=== PATIENT | female | born 1950 | race Caucasian/White ===

== ENCOUNTER 2016-10-13 12:55 | Emergency (ER) | payer BC, MEDICARE, OTHER ==
--- NOTE | 2016-10-13 13:37 | ED PDOC ---
HPI: Neurologic - General Time Seen by Provider: 10/13/16 13:11 Chief Complaint (Nursing): Weakness/Neurological Deficit Chief Complaint (Provider): Weakness/Neurological Deficit Source: patient Exam Limitations: no limitations - History of Present Illness Timing/Duration: 1 week Allergies/Adverse Reactions: Allergies aspirin Allergy (Verified 10/13/16 12:59) RASH Sulfa (Sulfonamide Antibiotics) Allergy (Verified 10/13/16 12:59) RASH Additional Complaint(s): Marlin Valle is a 66 year old female with a past medical history of asthma, hypertension, hypercholesterolemia, and osteoporosis presenting to the ED for an evaluation of a 1 week history of left arm and left sided facial numbness. The patient also states associated numbness to her tongue, chronic headache worsening in the last few days prior to arrival, and decreased urine output. She denies fever or back pain. PMD: Junaid Mcclure MD Past Medical History Vital Signs: Last Vital Signs Temp 98.8 F 10/13/16 12:59 Pulse 84 10/13/16 12:59 Resp 16 10/13/16 12:59 BP 145/75 10/13/16 12:59 Pulse Ox 100 10/13/16 12:59 - Medical History PMH: Asthma, HTN, Hypercholesterolemia, Migraine, Osteoporosis - Family History Family History: States: Unknown Family Hx - Social History Current smoker - smoking cessation education provided: No Ex-Smoker (has not smoked in the last 12 months): No Alcohol: None Drugs: Denies - Allergies Allergies/Adverse Reactions: Allergies Allergy/AdvReac Type Severity Reaction Status Date / Time aspirin Allergy RASH Verified 10/13/16 12:59 Sulfa (Sulfonamide Allergy RASH Verified 10/13/16 12:59 Antibiotics) Review of Systems ROS Statement: Except As Marked, All Systems Reviewed And Found Negative Constitutional: Negative for: Fever Genitourinary Female: Positive for: Dysuria (decreased urine output ) Musculoskeletal: Negative for: Back Pain Neurological: Positive for: Numbness (left sided facial numbness, left arm numbness, tongue numbness ), Headache Physical Exam - Reviewed Nursing Documentation Reviewed: Yes Vital Signs Reviewed: Yes - Physical Exam Appears: Positive for: Well, Non-toxic, No Acute Distress Head Exam: Positive for: ATRAUMATIC, NORMAL INSPECTION, NORMOCEPHALIC Neck: Positive for: Normal, Painless ROM, Supple Cardiovascular/Chest: Positive for: Regular Rate, Rhythm, Chest Non Tender Respiratory: Positive for: Normal Breath Sounds. Negative for: Respiratory Distress Gastrointestinal/Abdominal: Positive for: Normal Exam, Bowel Sounds, Soft. Negative for: Tenderness Extremity: Positive for: Normal ROM Neurologic/Psych: Positive for: Alert, Oriented, Other (no weakness in face; symmetrical; able to raise eyebrows and close eyes ). Negative for: Motor/ Sensory Deficits, Facial Droop - Laboratory Results Result Diagrams: 10/13/16 13:00 10/13/16 13:00 - ECG O2 Sat by Pulse Oximetry: 100 (RA) Pulse Ox Interpretation: Normal Medical Decision Making Medical Decision Makin:11 Impression: Left sided facial numbness Plan: * CT head w/o contrast * Basic metabolic panel * ED urine dipstick * CBC (With differential) * Urine culture * Urinalysis * Tylenol 650 mg PO * IV Insertion * Reevaluation Head CT FINDINGS: HEMORRHAGE: No intracranial hemorrhage. BRAIN: No mass effect or edema. No atrophy or chronic microvascular ischemic changes. VENTRICLES: Unremarkable. No hydrocephalus. CALVARIUM: Unremarkable. PARANASAL SINUSES: Unremarkable as visualized. No significant inflammatory changes. MASTOID AIR CELLS: Unremarkable as visualized. No inflammatory changes. OTHER FINDINGS: None. IMPRESSION: No acute intracranial abnormalities. No significant findings to account for the clinical presentation. Scribe Attestation: Documented by Lawanda Garcia, acting as a scribe for Zora Berger MD. Provider Scribe Attestation: All medical record entries made by the Scribe were at my direction and personally dictated by me. I have reviewed the chart and agree that the record accurately reflects my personal performance of the history, physical exam, medical decision making, and the department course for this patient. I have also personally directed, reviewed, and agree with the discharge instructions and disposition. 3.55p - Dr. Mcclure finally called back to review findings of patient that he saw earlier and that was sent to the ER for evaluation. History and findings are congruent. CT/labs normal. Symptoms non progressive for one week. Will discharge. Disposition - Clinical Impression Clinical Impression: Paresthesia - Patient ED Disposition Is Patient to be Admitted: No Doctor Will See Patient In The: Office Counseled Patient/Family Regarding: Diagnosis, Need For Followup - Disposition Referrals: Junaid Mcclure MD [Staff Provider] - Disposition: Routine/Home Disposition Time: 15:57 Condition: STABLE Instructions: Paresthesia (ED) Forms: [facility] ([place]) - POA Present On Arrival: None
[2016-10-13 14:04] LABS: BLOOD UREA NITROGEN 13 mg/dl (7-17); CALCIUM 9.6 mg/dL (8.4-10.2); GFR AFRICAN-AMERICAN > 60; GFR NON-AFRICAN AMERICAN > 60
[2016-10-13 14:14] LABS: BASO % 0.5 % (0.0-2.0); EOS # 0.1 K/uL (0.0-0.7); HEMOGLOBIN 15.2 g/dL (12.0-16.0); LYMPH # 2.8 K/uL (1.0-4.3); LYMPH % 32.8 % (20.0-40.0); MEAN CELL VOLUME 94.2 fl (81.0-99.0); MEAN CORPUSCULAR HEMOGLOBIN 31.8 pg (27.0-31.0); MEAN CORPUSCULAR HGB CONC 33.8 g/dL (33.0-37.0); MEAN PLATELET VOLUME 8.8 fl (7.2-11.7); MONO # 0.6 K/uL (0.0-0.8); MONO % 6.6 % (0.0-10.0); NEUT # 5.1 K/uL (1.8-7.0); NEUT % 59.1 % (50.0-75.0); NRBC % 0.1 % (0.0-0.0); RBC 4.78 Mil/uL (3.80-5.20); RED CELL DISTRIBUTION WIDTH 12.9 % (11.5-14.5); WHITE BLOOD COUNT 8.7 K/uL (4.8-10.8)
--- NOTE | 2016-10-13 14:18 | CT ---
PROCEDURE: CT HEAD WITHOUT CONTRAST. HISTORY: numbness Left nasolabial area for 1 week, ESCALERA COMPARISON: None available. TECHNIQUE: Axial computed tomography images were obtained through the head/brain without intravenous contrast. Coronal and sagittal reconstructed images. Radiation dose: Total exam DLP = 778.17 mGy-cm. This CT exam was performed using one or more of the following dose reduction techniques: Automated exposure control, adjustment of the mA and/or kV according to patient size, and/or use of iterative reconstruction technique. FINDINGS: HEMORRHAGE: No intracranial hemorrhage. BRAIN: No mass effect or edema. No atrophy or chronic microvascular ischemic changes. VENTRICLES: Unremarkable. No hydrocephalus. CALVARIUM: Unremarkable. PARANASAL SINUSES: Unremarkable as visualized. No significant inflammatory changes. MASTOID AIR CELLS: Unremarkable as visualized. No inflammatory changes. OTHER FINDINGS: None. IMPRESSION: No acute intracranial abnormalities. No significant findings to account for the clinical presentation.
[2016-10-13 15:25] LABS: SQUAMOUS EPITHIAL 1 /hpf (0-5); URINE BACTERIA RARE (<OCC); URINE BILIRUBIN NEGATIVE (NEGATIVE); URINE BLOOD MODERATE (NEGATIVE); URINE CLARITY SLIGHTY-CLOUDY (Clear); URINE COLOR YELLOW (YELLOW); URINE GLUCOSE (UA) NEG (Normal); URINE LEUKOCYTE ESTERASE NEG Leu/uL (Negative); URINE NITRATE NEGATIVE (NEGATIVE); URINE PROTEIN 30 mg/dL (NEGATIVE); URINE UROBILINOGEN 0.2-1.0 mg/dL (0.2-1.0)
[2016-10-13 16:43] VITALS: BP 132/74; PULSE 67; RESP 19; TEMP 98.6; O2SAT 98
--- NOTE | 2016-10-14 08:02 | CARD ---
APPROVED REPORT EKG Measurement Heart [id number] <Conclusion> Sinus bradycardia Possible Left atrial enlargement Incomplete right bundle branch block Borderline ECG
== END 2016-10-13 17:09 | disposition home or self-care (01) ==
LOC: H.ER 12:55
DX: R20.2 Paresthesia of skin (principal); I10 Essential (primary) hypertension; J45.909 Unspecified asthma, uncomplicated

== ENCOUNTER 2017-11-16 10:37 | Observation (INO) | payer MEDICARE, OTHER ==
[2017-11-16 10:49] VITALS: BMI 20.7
--- NOTE | 2017-11-16 11:19 | ED PDOC ---
HPI: Abdomen Time Seen by Provider: 11/16/17 11:13 Chief Complaint (Nursing): GI Problem History Per: Sign Wirer (darwin luis [id number]) History/Exam Limitations: no limitations Onset/Duration Of Symptoms: Days (1) Current Symptoms Are (Timing): Still Present Severity: Moderate Location Of Pain/Discomfort: LLQ Quality Of Discomfort: Sharp Associated Symptoms: Nausea, Diarrhea. denies: Vomiting, Urinary Symptoms Alleviating Factors: None Last Bowel Movement: Today Additional Complaint(s): 67yo female states began w diarrhea yesterday morning, progressing to LLQ abd pain and now one episode bloody stools this morning at 5am. Symptoms associated with chills and nausea, denies vomiting, syncope or back pain/ urinary symptoms. Denies prior hx rectal bleeding. Sees Dr Dowell for annual colonoscopies for "thickened colon wall". Past Medical History Reviewed: Historical Data, Nursing Documentation, Vital Signs Vital Signs: Last Vital Signs Temp 97 F L 11/16/17 10:47 Pulse 72 11/16/17 10:47 Resp 20 11/16/17 10:47 BP 145/76 11/16/17 10:47 Pulse Ox 97 11/16/17 11:24 - Medical History PMH: Asthma, HTN, Hypercholesterolemia, Migraine, Osteoporosis - Surgical History Other surgeries: breast cyst - Family History Family History: States: Unknown Family Hx - Living Arrangements Living Arrangements: With Family - Social History Current smoker - smoking cessation education provided: No - Allergies Allergies/Adverse Reactions: Allergies Allergy/AdvReac Type Severity Reaction Status Date / Time Sulfa (Sulfonamide Allergy RASH Verified 10/13/16 12:59 Antibiotics) Review of Systems Constitutional: Positive for: Chills. Negative for: Weight loss Eyes: Negative for: Eyelid Inflammation ENT: Negative for: Nose Discharge, Throat Pain Cardiovascular: Negative for: Chest Pain, Palpitations Respiratory: Negative for: Shortness of Breath Gastrointestinal: Positive for: Nausea, Abdominal Pain, Diarrhea, Hematochezia. Negative for: Vomiting, Hematemesis, Rectal Pain Genitourinary Female: Negative for: Dysuria, Hematuria Musculoskeletal: Negative for: Neck Pain Skin: Negative for: Rash, Lesions Neurological: Negative for: Weakness, Numbness, Headache, Dizziness Physical Exam - Reviewed Nursing Documentation Reviewed: Yes Vital Signs Reviewed: Yes - Physical Exam Appears: Positive for: Non-toxic, Uncomfortable Head Exam: Positive for: ATRAUMATIC, NORMAL INSPECTION, NORMOCEPHALIC Skin: Positive for: Normal Color, Warm, DRY Eye Exam: Positive for: EOMI, Normal appearance, PERRL ENT: Positive for: Normal ENT Inspection Neck: Positive for: Normal, Painless ROM Cardiovascular/Chest: Positive for: Regular Rate, Rhythm Respiratory: Positive for: CNT, Normal Breath Sounds Gastrointestinal/Abdominal: Positive for: Soft, Tenderness (LLQ). Negative for : Distended, Rebound, Asicites Back: Positive for: Normal Inspection Extremity: Positive for: Normal ROM Neurologic/Psych: Positive for: Alert, Oriented. Negative for: Motor/Sensory Deficits - Laboratory Results Result Diagrams: 11/16/17 11:40 11/16/17 11:40 - ECG O2 Sat by Pulse Oximetry: 97 Medical Decision Making Medical Decision Making: workup for abd pain w rectal bleeding initiated r/o diverticulitis, colitis vs other labs reviewed hgb normal WBC normal Manufacturing Automation Engineer normal Accession No. : [id number] Patient Name / ID : SADE MARTINEZ / [id number] Exam Date : 11/16/2017 14:43:18 ( Approved ) Study Comment : Sex / Age : F / 67Y Creator : Gisela Koroma MD Dictator : Gisela Koroma MD Lead Teller : Federal Air Marshal : Gisela Koroma MD Approver2 : Report Date : 11/16/2017 15:13:09 My Comment : Date of service: 11/16/2017 PROCEDURE: CT Abdomen and Pelvis with contrast HISTORY: LLQ pain, rectal bleeding COMPARISON: None. TECHNIQUE: CT scan of the abdomen and pelvis was performed after administration of intravenous contrast. Oral contrast was not administered. Coronal and sagittal reformatted images were obtained. Contrast dose: 95 cc Omnipaque 300 Radiation dose: Total exam DLP = 367.19 mGy-cm. This CT exam was performed using one or more of the following dose reduction techniques: Automated exposure control, adjustment of the mA and/or kV according to patient size, and/or use of iterative reconstruction technique. FINDINGS: LOWER THORAX: The visualized lungs are clear. LIVER: Normal in size with diffuse fatty appearance. No gross lesion or ductal dilatation. GALLBLADDER AND BILE DUCTS: No calcified gallstones. PANCREAS: Normal in size with homogeneous enhancement. No gross lesion or ductal dilatation. SPLEEN: Normal in size and appearance. ADRENALS: Mild thickening without discrete nodule. KIDNEYS AND URETERS: Normal in size with homogeneous enhancement. There are simple cysts in the right kidney, the largest in the upper pole measures 5.9 x 4.8 cm. No hydronephrosis. No solid mass. VASCULATURE: No aortic aneurysm. BOWEL: The small bowel loops are normal in caliber. There is apparent moderate circumferential mural thickening in the colon. No bowel dilatation or obstruction. APPENDIX: Normal appendix. PERITONEUM: No free fluid. No free air. LYMPH NODES: No enlarged lymph nodes. BLADDER: Unremarkable. REPRODUCTIVE: Unremarkable. BONES: No acute fracture. OTHER FINDINGS: None. IMPRESSION: Findings are most compatible with acute nonspecific infectious/inflammatory pancolitis. No evidence for bowel dilatation or obstruction. Fatty liver. 5.9 x 4.8 cm simple cyst in the right kidney. Disposition - Disposition Forms: [employer] (I[place]ic)
[2017-11-16] MEDS ORDERED: Sodium Chloride 0.9% 1,000 ML IV STA (11:20)
[2017-11-16 12:13] LABS: PROTHROMBIN TIME 10.9 Seconds (9.8-13.1)
[2017-11-16 12:16] LABS: PARTIAL THROMBOPLASTIN TIME 29.7 Seconds (25.6-37.1)
[2017-11-16 12:17] LABS: BASO % 0.2 % (0.0-2.0); EOS % 0.3 % (0.0-4.0); HEMOGLOBIN 14.6 g/dL (12.0-16.0); LYMPH # 1.3 K/uL (1.0-4.3); LYMPH % 12.9 % (20.0-40.0); MEAN CELL VOLUME 92.8 fl (81.0-99.0); MEAN CORPUSCULAR HEMOGLOBIN 32.1 pg (27.0-31.0); MEAN CORPUSCULAR HGB CONC 34.6 g/dL (33.0-37.0); MEAN PLATELET VOLUME 8.4 fl (7.2-11.7); MONO # 0.4 K/uL (0.0-0.8); NEUT # 8.5 K/uL (1.8-7.0); NEUT % 82.6 % (50.0-75.0); NRBC % 0.1 % (0.0-0.0); RBC 4.54 Mil/uL (3.80-5.20); RED CELL DISTRIBUTION WIDTH 13.3 % (11.5-14.5); WHITE BLOOD COUNT 10.3 K/uL (4.8-10.8)
[2017-11-16 12:23] LABS: ALB/GLOB RATIO 1.3 (1.0-2.1); ALBUMIN 4.2 g/dL (3.5-5.0); ALT/SGPT 34 U/L (9-52); AST/SGOT 34 U/L (14-36); BLOOD UREA NITROGEN 13 mg/dl (7-17); CALCIUM 9.2 mg/dL (8.4-10.2); GFR NON-AFRICAN AMERICAN > 60; LIPASE 178 U/L (23-300)
[2017-11-16 13:36] LABS: SQUAMOUS EPITHIAL 1 /hpf (0-5); URINE BILIRUBIN NEGATIVE (NEGATIVE); URINE BLOOD SMALL (NEGATIVE); URINE CLARITY SLIGHTY-CLOUDY (Clear); URINE COLOR AMBER (YELLOW); URINE GLUCOSE (UA) NEG (Normal); URINE LEUKOCYTE ESTERASE NEG Leu/uL (Negative); URINE PROTEIN 100 mg/dL (NEGATIVE); URINE UROBILINOGEN 0.2-1.0 mg/dL (0.2-1.0)
[2017-11-16] MEDS ORDERED: Sodium Chloride 0.9% 50 ML IV ONE (14:18)
[2017-11-16] MEDS ORDERED: Iohexol 300 100 ML IJ ONE (14:18)
--- NOTE | 2017-11-16 15:14 | CT ---
Date of service: 11/16/2017 PROCEDURE: CT Abdomen and Pelvis with contrast HISTORY: LLQ pain, rectal bleeding COMPARISON: None. TECHNIQUE: CT scan of the abdomen and pelvis was performed after administration of intravenous contrast. Oral contrast was not administered. Coronal and sagittal reformatted images were obtained. Contrast dose: 95 cc Omnipaque 300 Radiation dose: Total exam DLP = 367.19 mGy-cm. This CT exam was performed using one or more of the following dose reduction techniques: Automated exposure control, adjustment of the mA and/or kV according to patient size, and/or use of iterative reconstruction technique. FINDINGS: LOWER THORAX: The visualized lungs are clear. LIVER: Normal in size with diffuse fatty appearance. No gross lesion or ductal dilatation. GALLBLADDER AND BILE DUCTS: No calcified gallstones. PANCREAS: Normal in size with homogeneous enhancement. No gross lesion or ductal dilatation. SPLEEN: Normal in size and appearance. ADRENALS: Mild thickening without discrete nodule. KIDNEYS AND URETERS: Normal in size with homogeneous enhancement. There are simple cysts in the right kidney, the largest in the upper pole measures 5.9 x 4.8 cm. No hydronephrosis. No solid mass. VASCULATURE: No aortic aneurysm. BOWEL: The small bowel loops are normal in caliber. There is apparent moderate circumferential mural thickening in the colon. No bowel dilatation or obstruction. APPENDIX: Normal appendix. PERITONEUM: No free fluid. No free air. LYMPH NODES: No enlarged lymph nodes. BLADDER: Unremarkable. REPRODUCTIVE: Unremarkable. BONES: No acute fracture. OTHER FINDINGS: None. IMPRESSION: Findings are most compatible with acute nonspecific infectious/inflammatory pancolitis. No evidence for bowel dilatation or obstruction. Fatty liver. 5.9 x 4.8 cm simple cyst in the right kidney.
[2017-11-16] MEDS ORDERED: metroNIDAZOLE 500mg/100ml NS 100 ML IV STA (16:59)
[2017-11-16] MEDS ORDERED: Ciprofloxacin 400mg/200ml D5W 400 MG/200 ML BAG IVPB STA (16:59)
[2017-11-16] MEDS ORDERED: metroNIDAZOLE 500mg/100ml NS 100 ML IVPB ONE (17:45)
[2017-11-16] MEDS ORDERED: Ciprofloxacin 400mg/200ml D5W 400 MG/200 ML BAG IVPB ONE (17:45)
--- NOTE | 2017-11-16 17:58 | CP.PCM.HP ---
History of Present Illness - History of Present Illness History of Present Illness: 67 y/o female with PMH HTN, Dyslipidemia , osteoporosis presented to Er with 2 day history of diffuse cramps abdominal pain . As per patient she started having some abdominal pain since yesterday associated with 1 episode of diarrhea. Early this morning her abdominal pain progressed to 10/10 , and developed multiple bouts of watery diarrhea and fresh rectal bleed . She also complaining of nausea, no vomiting and feeling chills.Last colonoscopy was almost 1 year ago.Denies any recent travel and no one from her family is experiencing these symptoms. As per daughter 1 week ago for the first time she got Prolia injection for her osteoporosis. Denies any fever, chest pain , SOB, palpitation, PND , orthopnea, weight loss. Allergies :Sulfa drugs PMH : Dyslipidemia, HTN, osteoporosis Medications; omeprazole, zolpidem,losartan,ASA ,lamotrigine Prolia Surgery ; Tubal ligation, right breast cyst removal, uterine fibroma vs cyst removal family history ; siblings have all HTN and DM , aunt and grandparents had heart condition Social history ; Lives in [place] with and daughter , retired , denies smoking , ETOH or drug abuse Code status; Full PMD ; Dr Bang Loja Surrogate decision maker daughter Present on Admission - Present on Admission Any Indicators Present on Admission: No Review of Systems - Review of Systems All systems: reviewed and no additional remarkable complaints except Past Patient History - Infectious Disease Hx of Infectious Diseases: None - Tetanus Immunizations Tetanus Immunization: Unknown - Past Medical History & Family History Past Medical History?: Yes Past Family History: Reviewed and not pertinent - Past Social History Smoking Status: Never Smoked Chewing Tobacco Use: No Cigar Use: No Alcohol: None Drugs: Denies Home Situation {Lives}: With Family Domestic Violence: Negative - CARDIAC Hx Hypercholesterolemia: Yes Hx Hypertension: Yes - PULMONARY Hx Asthma: Yes - NEUROLOGICAL Hx Migraine: Yes - MUSCULOSKELETAL/RHEUMATOLOGICAL Hx Osteoporosis: Yes - GASTROINTESTINAL Other/Comment: Diverticulosis - PSYCHIATRIC Hx Substance Use: No - SURGICAL HISTORY Hx Hysterectomy: Yes Hx Tonsillectomy: Yes Other/Comment: removed cyst to rt. breast x2 - ANESTHESIA Hx Anesthesia: Yes Hx Anesthesia Reactions: No Meds Allergies/Adverse Reactions: Allergies Allergy/AdvReac Type Severity Reaction Status Date / Time Sulfa (Sulfonamide Allergy RASH Verified 10/13/16 12:59 Antibiotics) Physical Exam - Constitutional Appears: Non-toxic, No Acute Distress - Head Exam Head Exam: ATRAUMATIC, NORMAL INSPECTION, NORMOCEPHALIC - Eye Exam Eye Exam: EOMI, Normal appearance, PERRL Pupil Exam: NORMAL ACCOMODATION - ENT Exam ENT Exam: Mucous Membranes Moist, Normal Exam - Neck Exam Neck exam: Positive for: Full Rom, Normal Inspection - Respiratory Exam Respiratory Exam: Clear to Auscultation Bilateral, NORMAL BREATHING PATTERN. absent: Rales, Rhonchi, Wheezes - Cardiovascular Exam Cardiovascular Exam: REGULAR RHYTHM, RRR, +S1, +S2. absent: JVD - GI/Abdominal Exam GI & Abdominal Exam: Guarding, Normal Bowel Sounds, Soft, Tenderness. absent: Distended, Rebound - Rectal Exam Rectal Exam: Deferred - Extremities Exam Extremities exam: Positive for: normal capillary refill, normal inspection, pedal pulses present. Negative for: calf tenderness, pedal edema - Back Exam Back exam: NORMAL INSPECTION - Neurological Exam Neurological exam: Alert, CN II-XII Intact, Oriented x3, Reflexes Normal - Psychiatric Exam Psychiatric exam: Normal Affect, Normal Mood - Skin Skin Exam: Dry, Intact, Normal Color, Warm Results - Vital Signs Recent Vital Signs: Last Vital Signs Temp 97 F L 11/16/17 10:47 Pulse 72 11/16/17 10:47 Resp 20 11/16/17 10:47 BP 145/76 11/16/17 10:47 Pulse Ox 97 11/16/17 17:02 - Labs Result Diagrams: 11/16/17 11:40 11/16/17 11:40 Labs: Laboratory Results - last 24 hr 11/16/17 11/16/17 11/16/17 11:40 11:40 11:40 WBC 10.3 RBC 4.54 Hgb 14.6 Hct 42.2 MCV 92.8 MCH 32.1 H MCHC 34.6 RDW 13.3 Plt Count 270 MPV 8.4 Neut % (Auto) 82.6 H Lymph % (Auto) 12.9 L [place] % (Auto) 4.0 Eos % (Auto) 0.3 Baso % (Auto) 0.2 Neut # (Auto) 8.5 H Lymph # (Auto) 1.3 [place] # (Auto) 0.4 Eos # (Auto) 0.0 Baso # (Auto) 0.0 PT 10.9 INR 1.0 APTT 29.7 Sodium 138 Potassium 4.7 Chloride 103 Carbon Dioxide 30 Anion Gap 10 BUN 13 Creatinine 0.7 Est GFR ( Amer) > 60 Est GFR (Non-Af Amer) > 60 Random Glucose 132 H Calcium 9.2 Total Bilirubin 0.4 AST 34 ALT 34 Alkaline Phosphatase 94 Total Protein 7.6 Albumin 4.2 Globulin 3.3 Albumin/Globulin Ratio 1.3 Lipase 178 Urine Color Urine Clarity Urine pH Ur Specific [place] Urine Protein Urine Glucose (UA) Urine Ketones Urine Blood Urine Nitrate Urine Bilirubin Urine Urobilinogen Ur Leukocyte Esterase Urine RBC (Auto) Urine Microscopic WBC Ur Squamous Epith Cells 11/16/17 13:00 WBC RBC Hgb Hct MCV MCH MCHC RDW Plt Count MPV Neut % (Auto) Lymph % (Auto) [place] % (Auto) Eos % (Auto) Baso % (Auto) Neut # (Auto) Lymph # (Auto) [place] # (Auto) Eos # (Auto) Baso # (Auto) PT INR APTT Sodium Potassium Chloride Carbon Dioxide Anion Gap BUN Creatinine Est GFR ( Amer) Est GFR (Non-Af Amer) Random Glucose Calcium Total Bilirubin AST ALT Alkaline Phosphatase Total Protein Albumin Globulin Albumin/Globulin Ratio Lipase Urine Color [place] Urine Clarity Slighty-cloudy Urine pH 6.0 Ur Specific [place] 1.027 Urine Protein 100 Urine Glucose (UA) Neg Urine Ketones 20 Urine Blood Small Urine Nitrate Negative Urine Bilirubin Negative Urine Urobilinogen 0.2-1.0 Ur Leukocyte Esterase Neg Urine RBC (Auto) 23 H Urine Microscopic WBC 1 Ur Squamous Epith Cells 1 Assessment & Plan - Assessment and Plan (Free Text) Assessment: 67 y/o female with PMH HTN, Dyslipidemia , osteoporosis presented to ER with 2 day history of diffuse abdominal pain , multiple bouts of watery diarrhea and fresh rectal bleed CT abdomen and pelvis showed pancolitis WBC 10 Hgb 14.6 Patient to be placed under observation in med/surg 1. Pancolitis Will place patient under observation in med /surg Start IVF , pain mangement Cipro and Flagyl IV Send stool work up Start Liquid diet and advance slowly if tolerated Protonix for GI prophylaxis and Zofran for nausea 2. Rectal bleed Most likely related to pancolitis Hgb 14.6 . Repeat H&H Q 8 hours Treat as above 3. HTN resume home meds 4.Osteoporosis on Prolia injections as out patient 5.DVT prophylaxis SCD no anticoagulation due to rectal bleed
[2017-11-16] MEDS ORDERED: Albuterol 0.083% Inhal Sol (2.5 mg/3 mL) UD IH PRN (18:19)
[2017-11-16] MEDS: Sodium Chloride 0.9% 1,000 ML IV SCH (19:41)
--- NOTE | 2017-11-16 22:46 | CARD ---
APPROVED REPORT Date of service: 11/16/2017 EKG Measurement Heart [id number] <Conclusion> Normal sinus rhythm Possible Left atrial enlargement Borderline ECG
[2017-11-16] MEDS: Oxycodone/Acetaminophen 5/325 mg Tab PO PRN (22:58)
[2017-11-16] MEDS: Ciprofloxacin 400mg/200ml D5W 400 MG/200 ML BAG IVPB SCH (23:45)
[2017-11-17] MEDS: metroNIDAZOLE 500mg/100ml NS 100 ML IVPB SCH ×3 (01:59→16:43)
[2017-11-17] MEDS: Sodium Chloride 0.9% 1,000 ML IV SCH ×2 (06:08→06:10)
[2017-11-17] MEDS: Oxycodone/Acetaminophen 5/325 mg Tab PO PRN (06:09)
[2017-11-17 07:06] LABS: BASO # 0.1 K/uL (0.0-0.2); BASO % 0.3 % (0.0-2.0); EOS # 0.1 K/uL (0.0-0.7); EOS % 0.6 % (0.0-4.0); HEMOGLOBIN 13.3 g/dL (12.0-16.0); INR 1.2; LYMPH # 3.2 K/uL (1.0-4.3); LYMPH % 21.1 % (20.0-40.0); MEAN CELL VOLUME 94.1 fl (81.0-99.0); MEAN CORPUSCULAR HEMOGLOBIN 31.8 pg (27.0-31.0); MEAN CORPUSCULAR HGB CONC 33.8 g/dL (33.0-37.0); MEAN PLATELET VOLUME 8.1 fl (7.2-11.7); MONO # 1.1 K/uL (0.0-0.8); MONO % 7.2 % (0.0-10.0); NEUT # 10.9 K/uL (1.8-7.0); NEUT % 70.8 % (50.0-75.0); PROTHROMBIN TIME 12.8 Seconds (9.8-13.1); RBC 4.18 Mil/uL (3.80-5.20); RED CELL DISTRIBUTION WIDTH 13.4 % (11.5-14.5); WHITE BLOOD COUNT 15.4 K/uL (4.8-10.8)
[2017-11-17 07:26] LABS: ALB/GLOB RATIO 1.2 (1.0-2.1); ALBUMIN 3.6 g/dL (3.5-5.0); ALT/SGPT 32 U/L (9-52); AST/SGOT 21 U/L (14-36); BLOOD UREA NITROGEN 8 mg/dl (7-17); CALCIUM 7.8 mg/dL (8.4-10.2); GFR NON-AFRICAN AMERICAN > 60
[2017-11-17] MEDS: Ciprofloxacin 400mg/200ml D5W 400 MG/200 ML BAG IVPB SCH ×2 (09:05→21:10)
[2017-11-17] MEDS: Pantoprazole 40 mg EC Tab PO SCH (09:07)
--- NOTE | 2017-11-17 10:01 | CP.PCM.PN ---
Subjective - Date & Time of Evaluation Date of Evaluation: 11/17/17 Time of Evaluation: 08:02 - Subjective Subjective: Patient seen nd examined this morning during rounding, reports diffuse abdominal pain and had one bloody BM this am. Tolerating PO on liquid diet. Otherwise she denies nausea, vomiting, chest pain or palpitations no sob, dizziness, blurred vision or fatigue, no urinary symptoms. Afebrile this time. Objective - Vital Signs/Intake and Output Vital Signs (last 24 hours): Temp Pulse Resp BP Pulse Ox 98.1 F 74 19 124/69 98 11/17/17 08:00 11/17/17 08:00 11/17/17 08:00 11/17/17 08:00 11/17/17 08:00 - Medications Medications: Current Medications Acetaminophen (Tylenol 325mg Tab) 650 mg PO Q6 PRN PRN Reason: Pain, Mild (1-3) Acetaminophen (Tylenol 325mg Tab) 650 mg PO Q6 PRN PRN Reason: Fever >100.4 F Albuterol Sulfate (Albuterol 0.083% Inhal Trang (2.5 Mg/3 Ml) Ud) 2.5 mg IH Q6 PRN PRN Reason: Shortness of Breath Atorvastatin Calcium (Lipitor) 20 mg PO HS [facility] Last Admin: 11/16/17 23:31 Dose: 20 mg Ergocalciferol (Drisdol 50,000 Intl Units Cap) 1 cap PO SAT [facility] Sodium Chloride (Sodium Chloride 0.9%) 1,000 mls @ 100 mls/hr IV .Q10H [facility] Last Admin: 11/17/17 06:10 Dose: 100 mls/hr Ciprofloxacin (Cipro 400mg/200ml Dsw) 400 mg in 200 mls @ 200 mls/hr IVPB Q12 [facility] PRN Reason: Protocol Last Admin: 11/17/17 09:05 Dose: 200 mls/hr Metronidazole (Flagyl 500mg/100ml Ns) 100 mls @ 100 mls/hr IVPB Q8 [facility] PRN Reason: Protocol Last Admin: 11/17/17 09:05 Dose: 100 mls/hr Lamotrigine (Lamictal) 25 mg PO Q12 [facility] Last Admin: 11/17/17 09:07 Dose: 25 mg Losartan Potassium (Cozaar) 50 mg PO DAILY [facility] Last Admin: 11/17/17 09:06 Dose: 50 mg Morphine Sulfate (Morphine) 2 mg IVP Q6 PRN PRN Reason: Pain, severe (8-10) Last Admin: 11/16/17 19:42 Dose: 2 mg Ondansetron HCl (Zofran Inj) 4 mg IVP Q6 PRN PRN Reason: Nausea/Vomiting Last Admin: 11/16/17 19:42 Dose: 4 mg Oxycodone/Acetaminophen (Percocet 5/325 Mg Tab) 1 tab PO Q4 PRN PRN Reason: Pain, moderate (4-7) Stop: 11/19/17 18:16 Last Admin: 11/17/17 06:09 Dose: 1 tab Pantoprazole Sodium (Protonix Ec Tab) 40 mg PO DAILY [facility] Last Admin: 11/17/17 09:07 Dose: 40 mg - Labs Labs: 11/17/17 06:30 11/17/17 06:30 PT 12.8 Seconds (9.8-13.1) 11/17/17 06:30 INR 1.2 11/17/17 06:30 APTT 29.0 Seconds (25.6-37.1) 11/17/17 06:30 - Constitutional Appears: No Acute Distress - Head Exam Head Exam: NORMAL INSPECTION - Eye Exam Eye Exam: EOMI, PERRL - ENT Exam ENT Exam: Mucous Membranes Moist - Respiratory Exam Respiratory Exam: Clear to Ausculation Bilateral. absent: Rales, Rhonchi, Wheezes - Cardiovascular Exam Cardiovascular Exam: REGULAR RHYTHM. absent: Tachycardia, Murmur - GI/Abdominal Exam GI & Abdominal Exam: Soft, Tenderness (diffuse), Normal Bowel Sounds. absent: Distended, Guarding, Rebound - Extremities Exam Extremities Exam: absent: Calf Tenderness, Pedal Edema - Neurological Exam Neurological Exam: Alert, Awake, Oriented x3 - Psychiatric Exam Psychiatric exam: Normal Mood - Skin Skin Exam: Dry, Warm. absent: Rash Assessment and Plan - Assessment and Plan (Free Text) Assessment: 67 y/o female with PMH of HTN, Dyslipidemia and osteoporosis presented to ER with 2 day history of diffuse abdominal pain, multiple bouts of watery diarrhea and fresh rectal bleed. CT abdomen and pelvis showed pancolitis. WBC 10; Hgb 14.6 Pancolitis - leukocytosis WBC 15.4 today (increased from 10 yesterday) - c/w IVF, pain management - Cipro and Flagyl IV - stool work up pending - Liquid diet and advance slowly if tolerated - Protonix for GI prophylaxis and Zofran for nausea - GI consulted, awaiting recommeds Rectal bleed - Most likely related to pancolitis - Hgb drop from 14.6 to 13.3 - serial cbc - Treat as above HTN - resume home meds Osteoporosis - on Prolia injections as out patient DVT prophylaxis - SCD - no anticoagulation due to rectal bleed
[2017-11-17 14:22] LABS: MEAN CORPUSCULAR HEMOGLOBIN 31.7 pg (27.0-31.0); MEAN CORPUSCULAR HGB CONC 33.7 g/dL (33.0-37.0); RBC 4.09 Mil/uL (3.80-5.20); RED CELL DISTRIBUTION WIDTH 13.6 % (11.5-14.5); WHITE BLOOD COUNT 13.5 K/uL (4.8-10.8)
--- NOTE | 2017-11-17 23:28 | CON ---
DATE: 11/17/2017 REFERRING PHYSICIAN: . REASON FOR CONSULTATION: Rectal bleeding and abdominal pain. HISTORY OF PRESENT ILLNESS: This is a pleasant 67-year-old female who came to my office. Has a history of hyperlipidemia, hypertension, and osteoporosis who comes in for abdominal pain, cramping and rectal bleeding. Found to have colitis on CT. The patient has been doing better. Currently lying comfortable. No apparent distress. PAST MEDICAL HISTORY: As above. PAST SURGICAL HISTORY: As above. MEDICATIONS: Have been reviewed. REVIEW OF SYSTEMS: All other systems have been reviewed and negative apart from the HPI. PHYSICAL EXAMINATION: GENERAL: Pleasant middle-aged female, lying in bed comfortable, no apparent distress. VITAL SIGNS: Here in the hospital, grossly unremarkable. HEENT: Normocephalic and atraumatic. Eyes pupils are equally reactive to light bilaterally. No conjunctival pallor or icterus. NECK: Supple. Normal range of motion. No lymphadenopathy appreciated. LUNGS: Coarse breath sounds bilaterally. HEART: S1 and S2. Regular rate and rhythm. No murmurs appreciated. ABDOMEN: Soft. Some discomfort in the left upper quadrant. No rebound. No guarding. RECTAL: Deferred. EXTREMITIES: Pulses felt bilaterally. SKIN: Warm, dry, and intact. NEUROLOGIC: A and O x3. LABORATORY DATA: All labs and radiology have been reviewed. WBC is 15.4, which is up, 13.3 which is stable hemoglobin. LFTs are normal. CAT scan shows colitis. ASSESSMENT AND PLAN: This is a 67-year-old female with colitis. From a gastroenterology standpoint, Cipro and Flagyl for now. Continue advanced diet as tolerated. If white count worsens, may remain the antibiotics. Thank you for the consult. Haroon Dowell MD/ PhD cc:
[2017-11-18] MEDS: Sodium Chloride 0.9% 1,000 ML IV SCH ×2 (00:15→00:34)
[2017-11-18 00:45] VITALS: RESP 19
[2017-11-18] MEDS: metroNIDAZOLE 500mg/100ml NS 100 ML IVPB SCH ×2 (01:12→09:07)
[2017-11-18 06:33] LABS: BASO % 0.4 % (0.0-2.0); EOS # 0.1 K/uL (0.0-0.7); EOS % 1.1 % (0.0-4.0); HEMOGLOBIN 12.5 g/dL (12.0-16.0); LYMPH # 2.7 K/uL (1.0-4.3); LYMPH % 26.4 % (20.0-40.0); MEAN CELL VOLUME 93.7 fl (81.0-99.0); MEAN CORPUSCULAR HEMOGLOBIN 31.7 pg (27.0-31.0); MEAN CORPUSCULAR HGB CONC 33.9 g/dL (33.0-37.0); MONO # 0.8 K/uL (0.0-0.8); MONO % 7.6 % (0.0-10.0); NEUT # 6.5 K/uL (1.8-7.0); NEUT % 64.5 % (50.0-75.0); RBC 3.94 Mil/uL (3.80-5.20); RED CELL DISTRIBUTION WIDTH 14.2 % (11.5-14.5); WHITE BLOOD COUNT 10.1 K/uL (4.8-10.8)
[2017-11-18 07:11] LABS: ALB/GLOB RATIO 1.1 (1.0-2.1); ALBUMIN 3.1 g/dL (3.5-5.0); ALT/SGPT 34 U/L (9-52); AST/SGOT 24 U/L (14-36); BLOOD UREA NITROGEN 3 mg/dl (7-17); CALCIUM 7.5 mg/dL (8.4-10.2); GFR NON-AFRICAN AMERICAN > 60
[2017-11-18 08:17] VITALS: BP 116/64; PULSE 76; TEMP 98.8; O2SAT 97
[2017-11-18] MEDS: Pantoprazole 40 mg EC Tab PO SCH (09:11)
[2017-11-18] MEDS: Ciprofloxacin 400mg/200ml D5W 400 MG/200 ML BAG IVPB SCH (10:24)
--- NOTE | 2017-11-18 12:34 | CP.PCM.DIS ---
<Genoveva Brito - Last Filed: 11/18/17 15:12> Provider - Provider Date of Admission: 11/16/17 17:04 Attending physician: Roxanne Gentile MD Consults: YENNIFER Dowell Time Spent in preparation of Discharge (in minutes): 30 Diagnosis - Discharge Diagnosis (1) Pancolitis Status: Acute (2) Rectal bleed Status: Acute (3) Hypertension Status: Chronic (4) Osteoporosis Status: Chronic Hospital Course - Lab Results Lab Results: Most Recent Lab Values WBC 10.1 K/uL (4.8-10.8) 11/18/17 05:50 RBC 3.94 Mil/uL (3.80-5.20) 11/18/17 05:50 Hgb 12.5 g/dL (12.0-16.0) 11/18/17 05:50 Hct 36.9 % (34.0-47.0) 11/18/17 05:50 MCV 93.7 fl (81.0-99.0) 11/18/17 05:50 MCH 31.7 pg (27.0-31.0) H 11/18/17 05:50 MCHC 33.9 g/dL (33.0-37.0) 11/18/17 05:50 RDW 14.2 % (11.5-14.5) 11/18/17 05:50 Plt Count 211 K/uL (130-400) 11/18/17 05:50 MPV 8.0 fl (7.2-11.7) 11/18/17 05:50 Neut % (Auto) 64.5 % (50.0-75.0) 11/18/17 05:50 Lymph % (Auto) 26.4 % (20.0-40.0) 11/18/17 05:50 Dyer % (Auto) 7.6 % (0.0-10.0) 11/18/17 05:50 Eos % (Auto) 1.1 % (0.0-4.0) 11/18/17 05:50 Baso % (Auto) 0.4 % (0.0-2.0) 11/18/17 05:50 Neut # (Auto) 6.5 K/uL (1.8-7.0) 11/18/17 05:50 Lymph # (Auto) 2.7 K/uL (1.0-4.3) 11/18/17 05:50 Dyer # (Auto) 0.8 K/uL (0.0-0.8) 11/18/17 05:50 Eos # (Auto) 0.1 K/uL (0.0-0.7) 11/18/17 05:50 Baso # (Auto) 0.0 K/uL (0.0-0.2) 11/18/17 05:50 PT 12.8 Seconds (9.8-13.1) 11/17/17 06:30 INR 1.2 11/17/17 06:30 APTT 29.0 Seconds (25.6-37.1) 11/17/17 06:30 Sodium 139 mmol/l (132-148) 11/18/17 05:50 Potassium 3.5 MMOL/L (3.6-5.0) L 11/18/17 05:50 Chloride 111 mmol/L (98-107) H 11/18/17 05:50 Carbon Dioxide 25 mmol/L (22-30) 11/18/17 05:50 Anion Gap 7 (10-20) L 11/18/17 05:50 BUN 3 mg/dl (7-17) L 11/18/17 05:50 Creatinine 0.6 mg/dl (0.7-1.2) L 11/18/17 05:50 Est GFR ( Amer) > 60 11/18/17 05:50 Est GFR (Non-Af Amer) > 60 11/18/17 05:50 Random Glucose 100 mg/dL (65-105) 11/18/17 05:50 Calcium 7.5 mg/dL (8.4-10.2) L 11/18/17 05:50 Total Bilirubin 0.4 mg/dl (0.2-1.3) 11/18/17 05:50 AST 24 U/L (14-36) 11/18/17 05:50 ALT 34 U/L (9-52) 11/18/17 05:50 Alkaline Phosphatase 64 U/L (38-126) 11/18/17 05:50 Total Protein 6.0 G/DL (6.3-8.2) L 11/18/17 05:50 Albumin 3.1 g/dL (3.5-5.0) L 11/18/17 05:50 Globulin 2.8 gm/dL (2.2-3.9) 11/18/17 05:50 Albumin/Globulin Ratio 1.1 (1.0-2.1) 11/18/17 05:50 Lipase 178 U/L (23-300) 11/16/17 11:40 Urine Color Sadia (YELLOW) 11/16/17 13:00 Urine Clarity Slighty-cloudy (Clear) 11/16/17 13:00 Urine pH 6.0 (5.0-8.0) 11/16/17 13:00 Ur Specific Dudley 1.027 (1.003-1.030) 11/16/17 13:00 Urine Protein 100 mg/dL (NEGATIVE) 11/16/17 13:00 Urine Glucose (UA) Neg mg/dL (Normal) 11/16/17 13:00 Urine Ketones 20 mg/dL (NEGATIVE) 11/16/17 13:00 Urine Blood Small (NEGATIVE) 11/16/17 13:00 Urine Nitrate Negative (NEGATIVE) 11/16/17 13:00 Urine Bilirubin Negative (NEGATIVE) 11/16/17 13:00 Urine Urobilinogen 0.2-1.0 mg/dL (0.2-1.0) 11/16/17 13:00 Ur Leukocyte Esterase Neg Jason/uL (Negative) 11/16/17 13:00 Urine RBC (Auto) 23 /hpf (0-3) H 11/16/17 13:00 Urine Microscopic WBC 1 /hpf (0-5) 11/16/17 13:00 Ur Squamous Epith Cells 1 /hpf (0-5) 11/16/17 13:00 Stool Occult Blood Positive (NEGATIVE) H 11/17/17 19:00 Stool Leukocytes, Qual Positive (NEGATIVE) H 11/17/17 19:00 - Hospital Course Hospital Course: 67 y/o female with PMH of HTN, dyslipidemia and constipation admitted due to Pancolitis reported in CT done in ED. Patient presented with abdominal pain, diarrhea and fresh rectal bleed. Patient started on IVF, Cipro and Flagyl IV. During admission patient was afebrile and WBC trending down from 15K-13K-10K. GI consulted who agree with treatment. Patient tolerated advanced diet, VSS, H/ H stable 12.5/36.9, will discharge home. Patient to f/u with GI in 2 weeks (pt made appt already) and with PCP in 1 week. Rx of Cipro and Flagyl sent to pharmacy, pt to complete 10 days of abx. Discharge Exam - Head Exam Head Exam: NORMAL INSPECTION - Eye Exam Eye Exam: EOMI, PERRL - ENT Exam ENT Exam: Mucous Membranes Moist - Respiratory Exam Respiratory Exam: Clear to PA & Lateral. absent: Rhonchi, Wheezes - Cardiovascular Exam Cardiovascular Exam: REGULAR RHYTHM. absent: Tachycardia - GI/Abdominal Exam GI & Abdominal Exam: Normal Bowel Sounds, Soft. absent: Distended, Tenderness - Neurological Exam Neurological exam: Alert, CN II-XII Intact, Oriented x3 - Skin Skin Exam: Dry, Warm Discharge Plan - Discharge Medications Prescriptions: Ciprofloxacin [Cipro] 500 mg PO Q12H #20 tab Metronidazole 500 mg PO Q8H 9 Days #27 tablet - Follow Up Plan Condition: STABLE Disposition: HOME/ ROUTINE Instructions: [place] Diet, Acute Abdomen (Belly Pain), Adult (DC), Bloody Stools , Adult (DC) Additional Instructions: hacer melia con trujillo primario dentro de 1 semana y con el gastroenterologo dentro de 2 semanas Referrals: Junaid Mcclure MD [Family Provider] - Haroon Dowell MD, PhD [Staff Provider] - <Sydney Diamond - Last Filed: 11/18/17 18:20> Provider - Provider Date of Admission: 11/16/17 17:04 Attending physician: Roxanne Gentile MD Diagnosis - Discharge Diagnosis (1) Pancolitis Status: Acute Hospital Course - Lab Results Lab Results: Most Recent Lab Values WBC 10.1 K/uL (4.8-10.8) 11/18/17 05:50 RBC 3.94 Mil/uL (3.80-5.20) 11/18/17 05:50 Hgb 12.5 g/dL (12.0-16.0) 11/18/17 05:50 Hct 36.9 % (34.0-47.0) 11/18/17 05:50 MCV 93.7 fl (81.0-99.0) 11/18/17 05:50 MCH 31.7 pg (27.0-31.0) H 11/18/17 05:50 MCHC 33.9 g/dL (33.0-37.0) 11/18/17 05:50 RDW 14.2 % (11.5-14.5) 11/18/17 05:50 Plt Count 211 K/uL (130-400) 11/18/17 05:50 MPV 8.0 fl (7.2-11.7) 11/18/17 05:50 Neut % (Auto) 64.5 % (50.0-75.0) 11/18/17 05:50 Lymph % (Auto) 26.4 % (20.0-40.0) 11/18/17 05:50 Dyer % (Auto) 7.6 % (0.0-10.0) 11/18/17 05:50 Eos % (Auto) 1.1 % (0.0-4.0) 11/18/17 05:50 Baso % (Auto) 0.4 % (0.0-2.0) 11/18/17 05:50 Neut # (Auto) 6.5 K/uL (1.8-7.0) 11/18/17 05:50 Lymph # (Auto) 2.7 K/uL (1.0-4.3) 11/18/17 05:50 Dyer # (Auto) 0.8 K/uL (0.0-0.8) 11/18/17 05:50 Eos # (Auto) 0.1 K/uL (0.0-0.7) 11/18/17 05:50 Baso # (Auto) 0.0 K/uL (0.0-0.2) 11/18/17 05:50 PT 12.8 Seconds (9.8-13.1) 11/17/17 06:30 INR 1.2 11/17/17 06:30 APTT 29.0 Seconds (25.6-37.1) 11/17/17 06:30 Sodium 139 mmol/l (132-148) 11/18/17 05:50 Potassium 3.5 MMOL/L (3.6-5.0) L 11/18/17 05:50 Chloride 111 mmol/L (98-107) H 11/18/17 05:50 Carbon Dioxide 25 mmol/L (22-30) 11/18/17 05:50 Anion Gap 7 (10-20) L 11/18/17 05:50 BUN 3 mg/dl (7-17) L 11/18/17 05:50 Creatinine 0.6 mg/dl (0.7-1.2) L 11/18/17 05:50 Est GFR ( Amer) > 60 11/18/17 05:50 Est GFR (Non-Af Amer) > 60 11/18/17 05:50 Random Glucose 100 mg/dL (65-105) 11/18/17 05:50 Calcium 7.5 mg/dL (8.4-10.2) L 11/18/17 05:50 Total Bilirubin 0.4 mg/dl (0.2-1.3) 11/18/17 05:50 AST 24 U/L (14-36) 11/18/17 05:50 ALT 34 U/L (9-52) 11/18/17 05:50 Alkaline Phosphatase 64 U/L (38-126) 11/18/17 05:50 Total Protein 6.0 G/DL (6.3-8.2) L 11/18/17 05:50 Albumin 3.1 g/dL (3.5-5.0) L 11/18/17 05:50 Globulin 2.8 gm/dL (2.2-3.9) 11/18/17 05:50 Albumin/Globulin Ratio 1.1 (1.0-2.1) 11/18/17 05:50 Lipase 178 U/L (23-300) 11/16/17 11:40 Urine Color Sadia (YELLOW) 11/16/17 13:00 Urine Clarity Slighty-cloudy (Clear) 11/16/17 13:00 Urine pH 6.0 (5.0-8.0) 11/16/17 13:00 Ur Specific Dudley 1.027 (1.003-1.030) 11/16/17 13:00 Urine Protein 100 mg/dL (NEGATIVE) 11/16/17 13:00 Urine Glucose (UA) Neg mg/dL (Normal) 11/16/17 13:00 Urine Ketones 20 mg/dL (NEGATIVE) 11/16/17 13:00 Urine Blood Small (NEGATIVE) 11/16/17 13:00 Urine Nitrate Negative (NEGATIVE) 11/16/17 13:00 Urine Bilirubin Negative (NEGATIVE) 11/16/17 13:00 Urine Urobilinogen 0.2-1.0 mg/dL (0.2-1.0) 11/16/17 13:00 Ur Leukocyte Esterase Neg Jason/uL (Negative) 11/16/17 13:00 Urine RBC (Auto) 23 /hpf (0-3) H 11/16/17 13:00 Urine Microscopic WBC 1 /hpf (0-5) 11/16/17 13:00 Ur Squamous Epith Cells 1 /hpf (0-5) 11/16/17 13:00 Stool Occult Blood Positive (NEGATIVE) H 11/17/17 19:00 Stool Leukocytes, Qual Positive (NEGATIVE) H 11/17/17 19:00 Attending/Attestation - Attestation I have personally seen and examined this patient.: Yes I have fully participated in the care of the patient.: Yes I have reviewed all pertinent clinical information, including history, physical exam and plan: Yes Notes (Text): 11/18/17 18:20 Seen, examined, discussed with resident, agree with findings and plan as above.
[2017-11-19] MEDS ORDERED: Ergocalciferol 50,000 Intl Units Cap PO SCH (09:00)
== END 2017-11-18 14:59 | disposition home or self-care (01) ==
LOC: H.ER 10:37 → H.ERHOLD 17:04 → H.MEDSURG1 22:25
PROVIDERS: ADMIT Hospitalist; ATTEND Hospitalist
DX: K51.011 Ulcerative (chronic) pancolitis with rectal bleeding (principal); I10 Essential (primary) hypertension; E78.5 Hyperlipidemia, unspecified; J45.909 Unspecified asthma, uncomplicated; E78.00 Pure hypercholesterolemia, unspecified; Z88.2 Allergy status to sulfonamides; G43.909 Migraine, unspecified, not intractable, without status migrainosus; M81.0 Age-related osteoporosis without current pathological fracture
CPT/HCPCS: 36415; 74177; 80053; 81003; 83690; 85025; 85027; 85610; 85730; 87177; 87209; 89055; 93005; 96360; 96361; 96374; 99285; G0328; G0378; J0744; J1885; J2270; J2405; J7030; Q9967